=== PATIENT | female | born 1995 | race Caucasian/White ===

== ENCOUNTER 2017-11-09 10:29 | Emergency (ER) | payer MEDICAID ==
[2017-11-09] MEDS ORDERED: TYLENOL 325 MG PO ONE (10:48)
[2017-11-09] MEDS ORDERED: Sodium Chloride 0.9% 1000 ML 1,000 ML IV STA ×2 (10:48→13:13)
[2017-11-09 11:09] LABS: Appearance CLOUDY (CLEAR); Bilirubin NEGATIVE (NEGATIVE); Blood 50 Ery/ul (0-5); Glucose NEGATIVE (NEGATIVE); Ketones NEGATIVE (NEGATIVE); Leukocyte Esterase 1+ (NEGATIVE); Nitrite NEGATIVE (NEGATIVE); Protein,Urine Dip TRACE (Negative); Urobilinogen NORMAL mg/dL (0-1)
[2017-11-09 11:10] LABS: Amourphous Crystal FEW /HPF (NEGATIVE); Bacteria FEW /HPF (NEGATIVE); Epithelial Cells MODERATE /HPF (FEW); Mucus SLIGHT /HPF (NEGATIVE)
[2017-11-09] MEDS ORDERED: TYLENOL 325 MG ONE (11:18)
[2017-11-09] MEDS ORDERED: Sodium Chloride 0.9% 1000 ML 1,000 ML ONE ×2 (11:18→13:22)
[2017-11-09 11:19] LABS: Granulocyte Absolute (ANC) 5.31 (1.4-6.9); Hemoglobin 14.5 gm/dl (12.0-16.0); Mean Platelet Volume 10.3 fl (6-9.5); Platelet Count 216 K/mm3 (150-450); Red Cell Distribution Width 14.6 % (11.5-14.0); White Blood Count 6.4 K/mm3 (4.0-10.5)
--- NOTE | 2017-11-09 11:19 | ERPHSYRPT ---
- History of Present Illness Time Seen by Provider: 11/09/17 10:41 Source: patient Patient Subjective Stated Complaint: FEVER AND LOWER BACK PAIN FOR TWO DAYS. Triage Nursing Assessment: AMBULATED TO ROOM PER SELF. SKIN COOL TO TOUCH/ MOIST. LOWER BACK PAIN SINCE YESTERDAY. INSTRUCTED ON CLEAN CATCH URINE. Physician History: CC: fever Hx: 22 y/o patient with fever 102 since yesterday as well as low back pain. No N /T/W. She has slight cough. Not much sore throat. No rhinorrhea. Normal urination. She takes depo provera. She has insulin resistance but misses her metformin usually. No abd pain. No V/D. She has chronic psoriasis. Took motrin for the fever at home. Timing/Duration: yesterday Fever Severity: moderate Allergies/Adverse Reactions: No Known Drug Allergies Allergy (Verified 11/09/17 10:39) Hx Tetanus, Diphtheria Vaccination/Date Given: No Hx Influenza Vaccination/Date Given: No Hx Pneumococcal Vaccination/Date Given: No - Review of Systems Constitutional: Fever, Chills, Fatigue, Malaise Eyes: No Symptoms Ears, Nose, & Throat: Throat Pain, No Nose Congestion Respiratory: Cough Cardiac: No Chest Pain Abdominal/Gastrointestinal: No Abdominal Pain, No Nausea, No Vomiting, No Diarrhea Genitourinary Symptoms: No Dysuria, No Musculoskeletal: Back Pain Skin: No Rash Neurological: No Headache All Other Systems: Reviewed and Negative - Past Medical History Pertinent Past Medical History: Yes Neurological History: No Pertinent History ENT History: No Pertinent History Cardiac History: No Pertinent History Respiratory History: No Pertinent History Endocrine Medical History: No Pertinent History Musculoskeletal History: No Pertinent History GI Medical History: No Pertinent History History: No Pertinent History Psycho-Social History: No Pertinent History Female Reproductive Disorders: No Pertinent History Other Medical History: INSULIN RESISTANCE - Past Surgical History Past Surgical History: No Other Surgical History: TONSILS - Social History Smoking Status: Never smoker Exposure to second hand smoke: Yes Drug Use: none Patient Lives Alone: No - Female History Hx Now: (HCG pending, on depo provera) - Nursing Vital Signs Nursing Vital Signs: Initial Vital Signs Temperature 100.9 F 11/09/17 10:32 Pulse Rate 150 H 11/09/17 10:32 Respiratory Rate 20 11/09/17 10:32 Blood Pressure 140/90 11/09/17 10:32 O2 Sat by Pulse Oximetry 97 11/09/17 10:32 Pain Scale Pain Intensity 5 - Physical Exam General Appearance: alert, other (smiling, nontoxic, clammy skin) Eye Exam: PERRL/EOMI ENT Exam: normal ENT inspection, pharynx normal Neck Exam: normal inspection, non-tender, supple, No meningismus Respiratory Exam: normal breath sounds, lungs clear Cardiovascular/Chest Exam: normal heart sounds, regular rate/rhythm Gastrointestinal/Abdominal Exam: soft, no distention Extremity Exam: non-tender Neurologic Exam: alert, oriented x 3, cooperative, sensation nml, No motor deficits Skin Exam: normal color, warm, dry, No rash SpO2 Interpretation: normal SpO2: 97 Oxygen Delivery: Room Air - Course Nursing assessment & vital signs reviewed: Yes Ordered Tests: Active Orders 24 hr Category Date Time Status Clean Catch Urine Specimen STAT Care 11/09/17 10:41 Active IV Insertion STAT Care 11/09/17 10:48 Active CHEST 2 VIEWS (PA AND LAT) Stat Exams 11/09/17 11:58 Completed BLOOD CULTURE Stat Lab 11/09/17 11:02 Received CBC W DIFF Stat Lab 11/09/17 10:55 Completed CMP Stat Lab 11/09/17 10:55 Completed CULTURE, THROAT Stat Lab 11/09/17 11:14 Received CULTURE,URINE Stat Lab 11/09/17 10:41 Received HCG,QUALITATIVE URINE Stat Lab 11/09/17 10:50 Completed Lactic Acid Stat Lab 11/09/17 10:48 Completed Manual Differential NC Stat Lab 11/09/17 10:55 Completed STREP SCREEN-BETA A Stat Lab 11/09/17 11:14 Completed UA W/ MICROSCOPIC Stat Lab 11/09/17 10:41 Completed Medication Summary Generic Name Dose Route Start Last Admin Trade Name Freq PRN Reason Stop Dose Admin Ceftriaxone Sodium/Dextrose 1 g in 50 mls @ 100 mls/hr 11/09/17 13:13 Rocephin 1 Gm-D5w 50 Ml Bag IV 11/09/17 13:42 STAT STA Sodium Chloride 1,000 mls @ 999 mls/hr 11/09/17 13:13 Sodium Chloride 0.9% 1000 Ml IV 11/09/17 14:13 .Q1H1M STA Discontinued Medications Generic Name Dose Route Start Last Admin Trade Name Freq PRN Reason Stop Dose Admin Acetaminophen 975 mg 11/09/17 10:48 11/09/17 11:20 Tylenol 325 Mg PO 11/09/17 10:49 975 mg STAT ONE Administration Acetaminophen Confirm 11/09/17 11:18 Tylenol 325 Mg Administered 11/09/17 11:19 Dose 975 mg .ROUTE .STK-MED ONE Sodium Chloride 1,000 mls @ 999 mls/hr 11/09/17 10:48 11/09/17 11:19 Sodium Chloride 0.9% 1000 Ml IV 11/09/17 11:48 999 mls/hr .Q1H1M STA Administration Sodium Chloride Confirm 11/09/17 11:18 Sodium Chloride 0.9% 1000 Ml Administered 11/09/17 11:19 Dose 1,000 mls @ ud .ROUTE .STK-MED ONE Lab/Rad Data: Laboratory Result Diagrams 11/09/17 10:55 11/09/17 10:55 Laboratory Results 11/09/17 11/09/17 11/09/17 Range/Units 11:14 11:14 10:55 WBC (4.0-10.5) K/mm3 RBC (4.1-5.4) M/mm3 Hgb (12.0-16.0) gm/dl Hct (35-47) % MCV (78-100) fl MCH (26-32) pg MCHC (32-36) g/dl RDW (11.5-14.0) % Plt Count (150-450) K/mm3 MPV (6-9.5) fl Segmented Neutrophils (36.0-66.0) % Band Neutrophils (0.0-2.0) % Lymphocytes (Manual) (24-44) % Monocytes (Manual) (0.0-12.0) % Differential Comment Platelet Estimate (NORMAL) Sodium 136 (136-145) mEq/L Potassium 3.5 (3.5-5.1) mEq/L Chloride 102 (98-107) mEq/L Carbon Dioxide 20.9 L (21-32) mEq/L Anion Gap 16.9 H (5-15) MEQ/L BUN 5 L (9-20) mg/dL Creatinine 0.84 (0.55-1.30) mg/dl Estimated GFR > 60 ML/MIN Glucose 106 (70-110) MG/DL Lactic Acid (0.4-2.0) Calcium 9.0 (8.5-10.1) mg/dL Total Bilirubin 0.60 (0.2-1.0) mg/dL AST 78 H (15-37) U/L ALT 82 H (12-78) U/L Alkaline Phosphatase 128 H (46-116) U/L Serum Total Protein 8.7 H (6.4-8.2) gm/dL Albumin 3.7 (3.4-5.0) g/dL Ur Collection Type Urine Color (YELLOW) Urine Appearance (CLEAR) Urine pH (5-6) Ur Specific Garwood (1.005-1.025) Urine Protein (Negative) Urine Ketones (NEGATIVE) Urine Blood (0-5) Franky/ul Urine Nitrite (NEGATIVE) Urine Bilirubin (NEGATIVE) Urine Urobilinogen (0-1) mg/dL Ur Leukocyte Esterase (NEGATIVE) Urine Microscopic RBC (0-2) /HPF Urine Microscopic WBC (0-5) /HPF Ur Epithelial Cells (FEW) /HPF Amorphous Crystals (NEGATIVE) /HPF Urine Bacteria (NEGATIVE) /HPF Urine Mucus (NEGATIVE) /HPF Urine Culture Reflexed (NO) Urine Glucose (NEGATIVE) mg/dL Urine HCG, Qual (Negative) Influenza Type A Ag NEGATIVE (NEGATIVE) Influenza Type B Ag NEGATIVE (NEGATIVE) RSV (PCR) NEGATIVE (Negative) Streptococcus Screen NEGATIVE (Negative) Specimen Received 11/09/17 11/09/17 11/09/17 Range/Units 10:55 10:50 10:48 WBC 6.4 (4.0-10.5) K/mm3 RBC 5.50 H (4.1-5.4) M/mm3 Hgb 14.5 (12.0-16.0) gm/dl Hct 44.0 (35-47) % MCV 80.0 (78-100) fl MCH 26.3 (26-32) pg MCHC 33.0 (32-36) g/dl RDW 14.6 H (11.5-14.0) % Plt Count 216 (150-450) K/mm3 MPV 10.3 H (6-9.5) fl Segmented Neutrophils 82 H (36.0-66.0) % Band Neutrophils 5 H (0.0-2.0) % Lymphocytes (Manual) 12 L (24-44) % Monocytes (Manual) 1 (0.0-12.0) % Differential Comment NORMAL Platelet Estimate NORMAL (NORMAL) Sodium (136-145) mEq/L Potassium (3.5-5.1) mEq/L Chloride (98-107) mEq/L Carbon Dioxide (21-32) mEq/L Anion Gap (5-15) MEQ/L BUN (9-20) mg/dL Creatinine (0.55-1.30) mg/dl Estimated GFR ML/MIN Glucose (70-110) MG/DL Lactic Acid 1.3 (0.4-2.0) Calcium (8.5-10.1) mg/dL Total Bilirubin (0.2-1.0) mg/dL AST (15-37) U/L ALT (12-78) U/L Alkaline Phosphatase (46-116) U/L Serum Total Protein (6.4-8.2) gm/dL Albumin (3.4-5.0) g/dL Ur Collection Type Urine Color (YELLOW) Urine Appearance (CLEAR) Urine pH (5-6) Ur Specific Garwood (1.005-1.025) Urine Protein (Negative) Urine Ketones (NEGATIVE) Urine Blood (0-5) Franky/ul Urine Nitrite (NEGATIVE) Urine Bilirubin (NEGATIVE) Urine Urobilinogen (0-1) mg/dL Ur Leukocyte Esterase (NEGATIVE) Urine Microscopic RBC (0-2) /HPF Urine Microscopic WBC (0-5) /HPF Ur Epithelial Cells (FEW) /HPF Amorphous Crystals (NEGATIVE) /HPF Urine Bacteria (NEGATIVE) /HPF Urine Mucus (NEGATIVE) /HPF Urine Culture Reflexed (NO) Urine Glucose (NEGATIVE) mg/dL Urine HCG, Qual NEGATIVE (Negative) Influenza Type A Ag (NEGATIVE) Influenza Type B Ag (NEGATIVE) RSV (PCR) (Negative) Streptococcus Screen (Negative) Specimen Received 11/09/17 Range/Units 10:41 WBC (4.0-10.5) K/mm3 RBC (4.1-5.4) M/mm3 Hgb (12.0-16.0) gm/dl Hct (35-47) % MCV (78-100) fl MCH (26-32) pg MCHC (32-36) g/dl RDW (11.5-14.0) % Plt Count (150-450) K/mm3 MPV (6-9.5) fl Segmented Neutrophils (36.0-66.0) % Band Neutrophils (0.0-2.0) % Lymphocytes (Manual) (24-44) % Monocytes (Manual) (0.0-12.0) % Differential Comment Platelet Estimate (NORMAL) Sodium (136-145) mEq/L Potassium (3.5-5.1) mEq/L Chloride (98-107) mEq/L Carbon Dioxide (21-32) mEq/L Anion Gap (5-15) MEQ/L BUN (9-20) mg/dL Creatinine (0.55-1.30) mg/dl Estimated GFR ML/MIN Glucose (70-110) MG/DL Lactic Acid (0.4-2.0) Calcium (8.5-10.1) mg/dL Total Bilirubin (0.2-1.0) mg/dL AST (15-37) U/L ALT (12-78) U/L Alkaline Phosphatase (46-116) U/L Serum Total Protein (6.4-8.2) gm/dL Albumin (3.4-5.0) g/dL Ur Collection Type CLEAN CATCH Urine Color YELLOW (YELLOW) Urine Appearance CLOUDY (CLEAR) Urine pH 5.0 (5-6) Ur Specific Garwood 1.020 (1.005-1.025) Urine Protein TRACE (Negative) Urine Ketones NEGATIVE (NEGATIVE) Urine Blood 50 (0-5) Franky/ul Urine Nitrite NEGATIVE (NEGATIVE) Urine Bilirubin NEGATIVE (NEGATIVE) Urine Urobilinogen NORMAL (0-1) mg/dL Ur Leukocyte Esterase 1+ (NEGATIVE) Urine Microscopic RBC 2-5 (0-2) /HPF Urine Microscopic WBC 2-5 (0-5) /HPF Ur Epithelial Cells MODERATE (FEW) /HPF Amorphous Crystals FEW (NEGATIVE) /HPF Urine Bacteria FEW (NEGATIVE) /HPF Urine Mucus SLIGHT (NEGATIVE) /HPF Urine Culture Reflexed YES (NO) Urine Glucose NEGATIVE (NEGATIVE) mg/dL Urine HCG, Qual (Negative) Influenza Type A Ag (NEGATIVE) Influenza Type B Ag (NEGATIVE) RSV (PCR) (Negative) Streptococcus Screen (Negative) Specimen Received 11/09/17 1030 - Progress Progress Note: 11/09/17 13:16 HR much improved after APAP and IVF bolus. She has nonfocal symptoms. Flu like syndrome. She states chronic back pain without new or changed symptoms. LAbs reassuring. She does have a few bands and possible UTI. No abdominal tenderness on recheck examination. Normal spine examination. Will give IVF bolus, Rocephin , cultures sent, and will follow up with SAMAN Sims tomorrow. She is now eating a popscicle. Counseled pt/family regarding: lab results, diagnosis, need for follow-up, rad results - Departure Time of Disposition: 13:18 Departure Disposition: Home Clinical Impression: Fever, UTI (urinary tract infection) Condition: Fair Critical Care Time: No Referrals: REJI SIMS NP [Primary Care Provider] - Instructions: Fever (Symptom) -- Adult Additional Instructions: See SAMAN Sims tomorrow at 1:45PM. Rx omnicef- sent to [facility]. Push oral fluids. Return for rash, confusion, recurrent vomiting, or concerns. Tylenol every 4-6 hours for fever/discomfort. Prescriptions: Cefdinir [Omnicef 300 mg] 300 mg PO BID #20 capsule
[2017-11-09 11:22] LABS: Mean Corpuscular Hemoglobin 26.3 pg (26-32)
[2017-11-09 11:29] LABS: ALBUMIN 3.7 g/dL (3.4-5.0); ALKALINE PHOSPHATASE 128 U/L (46-116); ANION GAP 16.9 MEQ/L (5-15); CHLORIDE 102 mEq/L (98-107); Carbon Dioxide 20.9 mEq/L (21-32); Creatinine 1 0.84 mg/dl (0.55-1.30); EST GLOMERULAR FILTRATION RATE > 60 ML/MIN; Glucose 106 MG/DL (70-110); Potassium 3.5 mEq/L (3.5-5.1); SGOT/AST 78 U/L (15-37); SGPT/ALT 82 U/L (12-78); SODIUM 136 mEq/L (136-145); Total Protein 8.7 gm/dL (6.4-8.2)
[2017-11-09 11:35] LABS: BLOOD UREA NITROGEN 5 mg/dL (9-20)
[2017-11-09 11:41] LABS: BAND 5 % (0.0-2.0); Lymphocytes 12 % (24-44); Monocyte 1 % (0.0-12.0); Neutrophils 82 % (36.0-66.0); Total Cells Counted 100
[2017-11-09 11:42] LABS: Platelet Estimate NORMAL (NORMAL)
[2017-11-09 12:24] LABS: INFLUENZA A NEGATIVE (NEGATIVE); INFLUENZA B NEGATIVE (NEGATIVE); RESPIRATORY SYNCTIAL VIRUS NEGATIVE (Negative)
--- NOTE | 2017-11-09 12:29 | XRAY ---
Indication: Fever and cough. Comparison: None PA/lateral chest demonstrates normal heart, lungs, and bony thorax.
[2017-11-09] MEDS ORDERED: ROCEPHIN 1 Gm-D5w 50 ml Bag** 1 G/50 ML IVPB IV STA (13:13)
[2017-11-09] MEDS ORDERED: ROCEPHIN 1 Gm-D5w 50 ml Bag** 1 G/50 ML IVPB IV ONE (13:22)
[2017-11-09 13:37] VITALS: O2SAT 98
[2017-11-09 14:13] VITALS: BP 127/67; PULSE 90
== END 2017-11-09 14:22 | disposition home or self-care (01) ==
LOC: ED 10:29
DX: N39.0 Urinary tract infection, site not specified (principal); R50.9 Fever, unspecified; J11.1 Influenza due to unidentified influenza virus with other respiratory manifestations
CPT/HCPCS: 36000; 36415; 71046; 80053; 81000; 83605; 84703; 85025; 87040; 87070; 87086; 87430; 87631; 96360; 96361; 96365; 99284; J0696; A9270-GY

== ENCOUNTER 2018-08-01 10:16 | Emergency (ER) | payer OTHER ==
[2018-08-01 10:26] VITALS: BP 168/108; PULSE 116
--- NOTE | 2018-08-01 10:29 | ERPHSYRPT ---
- History of Present Illness Time Seen by Provider: 08/01/18 10:25 Source: patient Exam Limitations: no limitations Patient Subjective Stated Complaint: co something in left ear, she woke up states she feels something is crawling in ear Triage Nursing Assessment: pt alert, resp easy, skin w/d/p Physician History: 23-year-old white female arrives with complaint of foreign body sensation ( insect) in her left ear canal symptoms since just prior to arrival. Patient states she was sleeping when she felt something Proventil into her ear. Patient denies other complaints. Past medical history patient denies pastsurgicalhistory tonsils Social history alcohol use Timing/Duration: today Severity: moderate Modifying Factors: Improves With: nothing Associated Symptoms: No nausea, No vomiting, No abdominal pain, No shortness of breath, No heartburn, No diaphoresis, No cough, No chills, No chest pain, No fever, No headaches, No loss of appetite, No malaise, No rash, No syncope, No seizure, No weakness Allergies/Adverse Reactions: No Known Drug Allergies Allergy (Verified 08/01/18 10:25) Hx Tetanus, Diphtheria Vaccination/Date Given: Yes Hx Influenza Vaccination/Date Given: No Hx Pneumococcal Vaccination/Date Given: No Immunizations Up to Date: Yes - Review of Systems Constitutional: No Fever, No Chills Eyes: No Symptoms Ears, Nose, & Throat: Other (foreign body sensation (insect) left ear), No Ear Discharge, No Hearing Changes, No Tinnitus, No Nose Pain, No Nose Congestion, No Nose Discharge, No Sinus Drainage, No Epistaxis, No Mouth Pain, No Mouth Swelling, No Loose Teeth, No Throat Pain, No Throat Swelling, No Hoarse, No Painful Swallowing, No Snoring, No Stridor Respiratory: No Cough, No Dyspnea Cardiac: No Chest Pain, No Edema, No Syncope Abdominal/Gastrointestinal: No Abdominal Pain, No Nausea, No Vomiting, No Diarrhea Genitourinary Symptoms: No Dysuria Musculoskeletal: No Back Pain, No Neck Pain Skin: No Rash Neurological: No Dizziness, No Focal Weakness, No Sensory Changes Psychological: No Symptoms Endocrine: No Symptoms All Other Systems: Reviewed and Negative - Past Medical History Pertinent Past Medical History: No Neurological History: No Pertinent History ENT History: No Pertinent History Cardiac History: No Pertinent History Respiratory History: No Pertinent History Endocrine Medical History: No Pertinent History Musculoskeletal History: No Pertinent History GI Medical History: No Pertinent History History: No Pertinent History Psycho-Social History: No Pertinent History Female Reproductive Disorders: No Pertinent History Other Medical History: INSULIN RESISTANCE - Past Surgical History Past Surgical History: No Other Surgical History: TONSILS - Social History Smoking Status: Never smoker Exposure to second hand smoke: No Drug Use: none Patient Lives Alone: No - Female History Hx Last Menstrual Period: unsre Hx Now: No - Nursing Vital Signs Nursing Vital Signs: Initial Vital Signs Temperature 98.6 F 08/01/18 10:22 Pulse Rate 116 H 08/01/18 10:22 Respiratory Rate 16 08/01/18 10:22 Blood Pressure 168/108 08/01/18 10:22 O2 Sat by Pulse Oximetry 100 08/01/18 10:22 Pain Scale Pain Intensity 0 - Physical Exam General Appearance: no apparent distress, alert Eye Exam: PERRL/EOMI, eyes nml inspection Ears, Nose, Throat Exam: TMs normal, pharynx normal, moist mucous membranes, other (insect in left ear canal) Neck Exam: normal inspection, non-tender, supple, full range of motion Respiratory Exam: normal breath sounds, lungs clear, No respiratory distress Cardiovascular Exam: regular rate/rhythm, normal heart sounds, normal peripheral pulses Gastrointestinal/Abdomen Exam: soft, normal bowel sounds, No tenderness, No mass Back Exam: normal inspection, normal range of motion, No CVA tenderness, No vertebral tenderness Extremity Exam: normal inspection, normal range of motion, pelvis stable Neurologic Exam: alert, oriented x 3, cooperative, converter operator II-XII nml as tested, normal mood/affect, nml cerebellar function, nml station & gait, sensation nml, No motor deficits Skin Exam: normal color, warm, dry, No rash SpO2 Interpretation: normal (100%) SpO2: 100 Oxygen Delivery: Room Air - Course Nursing assessment & vital signs reviewed: Yes Ordered Tests: Medication Summary Discontinued Medications Generic Name Dose Route Start Last Admin Trade Name Delisa PRN Reason Stop Dose Admin Lidocaine HCl 20 ml 08/01/18 10:40 08/01/18 10:46 Xylocaine Viscous 2% 20 Ml Cup PO 08/01/18 10:41 20 ml STAT ONE Administration Lidocaine HCl Confirm 08/01/18 10:43 Xylocaine Hcl Viscous * Administered 08/01/18 10:44 Dose 15 ml .ROUTE .STK-MED ONE - Progress Progress: improved Progress Note: 08/01/18 11:33 23-year-old white female with complaint of an insect in her left ear canal since just prior to arrival. Patient with a visible insect in her left ear canal. Left ear canal is infused with 2% viscous lidocaine. After approximately 10-15 minutes patient's nurse irrigated the left ear. And a winged insect came out of the patient's left ear. Patient's left ear is reexamined tympanic membrane is intact, no further foreign bodies no erythema. Will release patient. - Departure Time of Disposition: 11:35 Departure Disposition: Home Clinical Impression: insect left ear canal Acute foreign body of left ear canal Qualifiers: Encounter type: initial encounter Qualified Code(s): T16.2XXA - Foreign body in left ear, initial encounter Condition: Fair Critical Care Time: No Referrals: ARABELLA MAYER [Primary Care Provider] - Additional Instructions: Return home. Follow-up with your family doctor or return if problems. Return for acute distress or for severe symptoms.
[2018-08-01] MEDS ORDERED: XYLOCAINE HCl Viscous ONE (10:43)
[2018-08-01] MEDS: XYLOCAINE VISCOUS 2% 20 ML CUP PO ONE (10:46)
[2018-08-01 11:46] VITALS: O2SAT 98
== END 2018-08-01 11:45 | disposition home or self-care (01) ==
LOC: ED 10:16
DX: T16.2XXA Foreign body in left ear, initial encounter (principal)
CPT/HCPCS: 69200; 69210; 99283; A9270-GY

== ENCOUNTER 2023-04-13 15:09 | Emergency (ER) | payer MEDICAID ==
[2023-04-13 16:32] VITALS: BP 130/87; PULSE 109; O2SAT 97
--- NOTE | 2023-04-13 16:39 | ERPHSYRPT ---
- History of Present Illness Source: patient Exam Limitations: no limitations Patient Subjective Stated Complaint: C/O pain and swelling to RLE Triage Nursing Assessment: Patient ambulated back to ER without difficulties. She is alert and oriented. No SOB. BLE are red and swollen with scaly shins. Patient reports sunburns to area from trip to [place] a few weeks ago. Bilateral, weak, pedal pulses are present. Physician History: 27 yo WF 23 wks ([id number]) w B lower extremity edema x 2 wks and mild R calf pain x 1 day. Pt has B pre-tibial sunburn which is resolving. She denies chest pain/dyspnea/fever/vag bleeding/dysuria/hematuria. Pt sent to the ER by her Ob to r/o DVT. Method of Injury: unknown Occurred: other (2 wks) Modifying Factors: Improves With: nothing Allergies/Adverse Reactions: metoprolol Allergy (Verified 04/13/23 15:47) Difficulty Breathing Home Medications: Metformin HCl Xr 500 mg [Glucophage XR 500 MG] 2 tab PO DAILY 02/14/19 [History] Aspirin EC 81 mg [Ecotrin 81 mg] 1 tab PO DAILY 04/13/23 [History] Pnv No.95/Ferrous Fum/Folic AC [ Caplet] 1 cap PO DAILY 04/13/23 [History] Hx Tetanus, Diphtheria Vaccination/Date Given: Yes Hx Influenza Vaccination/Date Given: No Hx Pneumococcal Vaccination/Date Given: No Immunizations Up to Date: Yes Travel Risk - International Travel Have you traveled outside of the country in past 3 weeks: No - Coronavirus Screening Are you exhibiting any of the following symptoms?: No Close contact with a COVID-19 positive Pt in past 14-21 Days: No - Vaccine Status Have you recieved a Covid-19 vaccination: No - Review of Systems Constitutional: No Symptoms Eyes: No Symptoms Ears, Nose, & Throat: No Symptoms Respiratory: No Symptoms Cardiac: No Symptoms Abdominal/Gastrointestinal: No Symptoms Genitourinary Symptoms: No Symptoms Neurological: No Symptoms Psychological: No Symptoms Endocrine: No Symptoms Hematologic/Lymphatic: No Symptoms Immunological/Allergic: No Symptoms - Past Medical History Pertinent Past Medical History: Yes Neurological History: No Pertinent History ENT History: No Pertinent History Cardiac History: No Pertinent History Respiratory History: No Pertinent History Endocrine Medical History: No Pertinent History Musculoskeletal History: No Pertinent History GI Medical History: No Pertinent History History: No Pertinent History Psycho-Social History: No Pertinent History Female Reproductive Disorders: No Pertinent History Other Medical History: PSORIASIS, PCOS. insulin resistance - Past Surgical History Past Surgical History: Yes Other Surgical History: TONSILS - Social History Smoking Status: Never smoker Exposure to second hand smoke: Yes Drug Use: none Patient Lives Alone: No - Female History Hx Last Menstrual Period: Nov 03, 2022 Hx Now: Yes Gestational Age: 23 weeks - Nursing Vital Signs Nursing Vital Signs: Initial Vital Signs Blood Pressure 176/107 04/13/23 15:46 O2 Sat by Pulse Oximetry 98 04/13/23 15:46 Pain Scale Pain Intensity 2 Hypertensive - Physical Exam General Appearance: no apparent distress Eyes, Ears, Nose, Throat Exam: normal ENT inspection, TMs normal, pharynx normal, moist mucous membranes Neck Exam: normal inspection, non-tender, supple, full range of motion, No Brudzinski, No Kernig's, No meningismus Cardiovascular/Respiratory Exam: normal breath sounds, regular rate/rhythm, heart sounds normal Gastrointestinal/Abdominal Exam: non-tender, soft Back Exam: normal inspection, normal range of motion, No CVA tenderness, No vertebral tenderness Hips Exam: bilateral: non-tender, normal inspection, normal range of motion, no evidence of injury Legs Exam: bilateral leg: swelling (Mild B pre-tibial edema/B calves NTTP/Resolving pre-tibial solar rich w mild erythema and encrusting/Good pedal pulses B/Good distal capillary return and sensation B) Knees Exam: bilateral knee: non-tender, normal inspection, normal range of motion, no evidence of injury Ankle Exam: bilateral ankle: swelling (Mild) Foot Exam: bilateral foot: non-tender, normal inspection, normal range of motion, no evidence of injury Neuro/Tendon Exam: normal sensation, normal motor functions, responds to pain, no evidence tendon injury, No motor deficit, No sensory deficit Mental Status Exam: alert, oriented x 3, cooperative Skin Exam: normal color, warm, dry SpO2 Interpretation: normal SpO2: 97 O2 Delivery: Room Air - Course Nursing assessment & vital signs reviewed: Yes - Radiology Ultrasound Exam Venous Lower Extremity Ultrasound: discussed w/radiologist (Neg for DVT) Ordered Tests: Active Orders 24 hr Category Date Time Status VENOUS BILATERAL EXTREMITY [US] Stat Exams 04/13/23 15:55 Completed - Progress Progress Note: 04/13/23 20:27 Nursing note and vital signs reviewed No food or housing insecurities noted US result reviewed and shared w pt Lower extremity edema most likely due to and resolving solar rich BP decreasing upon discharge 04/13/23 20:28 Counseled pt/family regarding: diagnosis, need for follow-up, rad results Medical Desision Making - Diagnostic Testing Radiological Interpretation: Reviewed by me - Risk of complications Low Risk: Low risk of morbidity from additional dx testing or treatment - Departure Departure Disposition: Home Clinical Impression: Lower extremity edema, Sunburn Condition: Stable Critical Care Time: No Referrals: ARABELLA SANDHU [Primary Care Provider] - Follow up/PCP as directed Instructions: Dependent Edema (DC) Additional Instructions: Follow up with your family MD or Ob Elevate legs Return to ER as needed
--- NOTE | 2023-04-13 16:41 | XRAY ---
Indication: Edema. Two-dimensional sonogram and color Doppler imaging of the major venous vessels of the left and right leg performed. Comparison: None No thrombus seen in the examined deep venous vessels of the left and right leg including greater saphenous vein. Veins demonstrate normal compressibility. Venous waveforms are normal with and without augmentation. Impression: Left and right legs negative for DVT.
== END 2023-04-13 16:45 | disposition home or self-care (01) ==
LOC: ED 15:09
DX: R60.0 Localized edema (principal); L55.0 Sunburn of first degree; M79.661 Pain in right lower leg; Z33.1 Pregnant state, incidental; Z79.84 Long term (current) use of oral hypoglycemic drugs; Z79.899 Other long term (current) drug therapy; Z28.310 Unvaccinated for COVID-19
CPT/HCPCS: 93970; 99283

== ENCOUNTER 2023-08-02 08:00 | Inpatient (IN) | payer MEDICAID ==
[2023-08-02] MEDS ORDERED: TYLENOL EXTRA STRENGTH 500 MG PO PRN (16:00)
[2023-08-02] MEDS ORDERED: Zofran 4 MG/2 ML VIAL IV PRN (16:00)
[2023-08-02] MEDS: CYTOTEC PO SCH ×4 (16:49→23:30)
[2023-08-02 16:57] LABS: Absolute Neutrophil Ct (ANC) 8.74 x10^3/uL (1.4-6.9); BASOPHIL % 0.3 % (0.0-0.4); Basophil (Absolute #) 0.04 x10^3/uL (0-0.4); Eosinophil % 0.4 % (0.00-5.0); Eosinophil (Absolute #) 0.05 x10^3/uL (0-0.5); Hematocrit 39.2 % (35-47); Hemoglobin 12.2 g/dL (12.0-16.0); IMMATURE GRAN % 0.8 % (0.00-0.4); Lymphocyte (Absolute #) 2.12 x10^3/uL (1.0-4.6); Lymphocytes % 17.9 % (24.0-44.0); Mean Cell Volume 80.3 fL (78-100); Mean Corpuscular Hgb Concent. 31.1 g/dL (32-36); Mean Platelet Volume 11.2 fL (7.5-11.0); Monocyte (Absolute #) 0.81 x10^3/uL (0.0-1.3); Monocytes % 6.8 % (0.0-12.0); Neutrophil % 73.8 % (36.0-66.0); Platelet Count 273 x10^3/uL (150-450); Red Blood Count 4.88 x10^6/uL (4.1-5.4); Red Cell Distribution Width 14.2 % (11.5-14.0); White Blood Count 11.9 x10^3/uL (4.0-10.5)
[2023-08-02 17:18] LABS: Amphetamine,Urine NEGATIVE (NEGATIVE); Barbiturate,Urine NEGATIVE (NEGATIVE); Benzodiazepine,Urine NEGATIVE (NEGATIVE); Cocaine,Urine NEGATIVE (NEGATIVE); Methadone,Urine NEGATIVE (NEGATIVE); Opiate,Urine NEGATIVE (NEGATIVE); PCP,Urine NEGATIVE (NEGATIVE); THC,Urine NEGATIVE (NEGATIVE)
[2023-08-02 17:38] LABS: ADD URINE CULTURE? YES (NO); Appearance Turbid (Clear); Bacteria Many /HPF (None Seen); Bilirubin Negative (Negative); Blood Negative (Negative); Epithelial Cells Many /HPF (None Seen); Glucose, Urine Negative (Negative); Ketones Negative (Negative); Leukocyte Esterase Large (Negative); Nitrite Negative (Negative); Protein,Urine Dip Trace (Negative); RBC 0-2 /HPF (0-5); WBC 51-100 /HPF (0-5)
[2023-08-02 17:50] LABS: ABO TYPING B; Antibody Screen NEGATIVE (NEGATIVE); RH TYPING NEGATIVE
[2023-08-02] MEDS ORDERED: Nubain 10 MG/ML IV PRN (22:32)
[2023-08-03] MEDS: CYTOTEC PO SCH ×3 (01:31→05:55)
[2023-08-03] MEDS ORDERED: FENTANYL 2 MCG-BUPIV 0.125%-NS 250 ML Epidur 250 ML EPIDURAL ONE (03:55)
[2023-08-03] MEDS ORDERED: Lactated Ringers 2,000 ML IV ONE (03:56)
[2023-08-03] MEDS: Lactated Ringers 1,000 ML IV SCH ×3 (05:57→17:37)
[2023-08-03] MEDS ORDERED: FENTANYL 2 MCG-BUPIV 0.125%-NS 250 ML Epidur 250 ML EPIDURAL SCH (06:00)
[2023-08-03] MEDS ORDERED: Lactated Ringers 1,000 ML IV ONE ×2 (06:00→14:33)
[2023-08-03] MEDS ORDERED: Ephedrine Sulfate 50 MG/ML IV PRN (06:00)
[2023-08-03] MEDS ORDERED: PITOCIN 30 UNITS/ LR 500 ML 30 UNITS/500 ML PLAST..BAG IV SCH (07:00)
[2023-08-03] MEDS ORDERED: XYLOCAINE 1% HCL 20 ML MDV IJ PRN (07:00)
[2023-08-03] MEDS ORDERED: Pepcid 20 MG VIAL IV STA (14:33)
[2023-08-03] MEDS ORDERED: Reglan 10 MG/2 ML IV STA (14:33)
[2023-08-03] MEDS ORDERED: SOD CITRATE-CITRIC ACID SOLN PO STA (14:33)
[2023-08-03] MEDS ORDERED: CEFAZOLIN 2 GM-D5W BAG** 2 GM/50 ML ML IV ONE (14:35)
[2023-08-03] MEDS ORDERED: XYLOCAINE 2%/Epi 1:200000 20ML VIAL MPF ONE (15:35)
[2023-08-03] MEDS ORDERED: SUBLIMAZE 100 MCG/2 ML ONE (15:35)
[2023-08-03] MEDS ORDERED: DEXMEDETOMIDINE 80 MCG/20ML-NS IV ONE (15:50)
[2023-08-03] MEDS ORDERED: Pitocin 10 UNITS/ML ONE (16:05)
[2023-08-03] MEDS ORDERED: TORAdol 30 mg Injection ONE (16:07)
[2023-08-03] MEDS ORDERED: Astramorph-Pf 5 MG/10 ML ONE (16:13)
[2023-08-03] MEDS ORDERED: PHENYLEPHRINE HCL ONE (16:21)
[2023-08-03] MEDS ORDERED: PERCOCET TABLET 5/325MG PO PRN (19:24)
[2023-08-03] MEDS ORDERED: Zofran 4 MG/2 ML VIAL IV PRN (19:24)
[2023-08-03] MEDS ORDERED: Dulcolax 10 MG SUPP PR PRN (19:24)
[2023-08-03] MEDS ORDERED: MORPHINE SULFATE 2 MG INJ IV PRN (19:24)
[2023-08-03] MEDS ORDERED: Narcan 0.4 MG/ML IV PRN (19:24)
[2023-08-03] MEDS ORDERED: HOLD NARCOTIC ANALGESICS AND SEDATIVES X24 HR MC PRN (19:24)
[2023-08-03] MEDS ORDERED: TUCKS TP PRN (19:24)
[2023-08-03] MEDS ORDERED: Anucort-HC SUPPOSITORY PR PRN (19:24)
[2023-08-03] MEDS ORDERED: Ambien 10 MG PO PRN (19:24)
[2023-08-03] MEDS ORDERED: CLARITIN 10 MG PO PRN (19:24)
[2023-08-03] MEDS ORDERED: LANSINOH 40 GM TOP PRN (19:24)
[2023-08-03] MEDS ORDERED: BENADRYL 50 MG/ML IV PRN (19:24)
[2023-08-03] MEDS ORDERED: Sodium Chloride 0.9% 10 ML FLUSH Syringe IJ PRN (19:24)
[2023-08-03] MEDS ORDERED: Mylicon 80MG PO PRN (19:24)
[2023-08-03] MEDS ORDERED: CORTISONE 1% CREAM TP PRN (19:24)
[2023-08-03] MEDS ORDERED: Nubain 10 MG/ML IV PRN (19:24)
[2023-08-03] MEDS ORDERED: Dextrose 5%-Lr IV Solution 1000 ML 1,000 ML IV SCH (19:30)
[2023-08-03] MEDS: MOTRIN 400 MG PO PRN (22:58)
[2023-08-03] MEDS: Docusate Sodium 100 MG PO SCH (22:58)
[2023-08-03] MEDS: CEFAZOLIN 2 GM-D5W BAG** 2 GM/50 ML ML IV SCH (22:59)
[2023-08-04] MEDS: Lactated Ringers 1,000 ML IV SCH (02:58)
[2023-08-04 04:16] LABS: Absolute Neutrophil Ct (ANC) 22.07 x10^3/uL (1.4-6.9); BASOPHIL % 0.2 % (0.0-0.4); Basophil (Absolute #) 0.05 x10^3/uL (0-0.4); Eosinophil % 0.1 % (0.00-5.0); Eosinophil (Absolute #) 0.02 x10^3/uL (0-0.5); Hematocrit 31.1 % (35-47); Hemoglobin 9.8 g/dL (12.0-16.0); IMMATURE GRAN # 0.27 x10^3u/L (0.00-0.03); Lymphocyte (Absolute #) 1.61 x10^3/uL (1.0-4.6); Lymphocytes % 6.2 % (24.0-44.0); Mean Cell Volume 81.4 fL (78-100); Mean Corpuscular Hemoglobin 25.7 pg (26-32); Mean Corpuscular Hgb Concent. 31.5 g/dL (32-36); Mean Platelet Volume 11.2 fL (7.5-11.0); Monocyte (Absolute #) 2.03 x10^3/uL (0.0-1.3); Monocytes % 7.8 % (0.0-12.0); Neutrophil % 84.7 % (36.0-66.0); Platelet Count 269 x10^3/uL (150-450); Red Blood Count 3.82 x10^6/uL (4.1-5.4); Red Cell Distribution Width 14.3 % (11.5-14.0)
[2023-08-04 04:20] LABS: White Blood Count 26.1 x10^3/uL (4.0-10.5)
[2023-08-04 05:00] LABS: Lymphocytes 6 % (24-44); Monocyte 6 % (0.0-12.0); Neutrophils 88 % (36.0-66.0); Total Cells Counted 100
[2023-08-04 05:03] LABS: ANISOCYTOSIS 1+; Hypochromia 1+
[2023-08-04 05:04] LABS: Platelet Estimate NORMAL (NORMAL)
[2023-08-04] MEDS: CEFAZOLIN 2 GM-D5W BAG** 2 GM/50 ML ML IV SCH (07:29)
--- NOTE | 2023-08-04 08:44 | PCM.NOTE ---
Date and Time: 08/04/2338 Subjective Assessment: pod 1 sp csection pt resting in bed and doing well ambulating and tolerating diet vss afebrile abd; soft with dressing intact with no soilage uters; firm lochia; mild hgb; 9.2 a/p sp csection pod 1 anticipate discharge tomorrow OBJECTIVE DATA Vital Signs: Vital Signs - 24 hr Temp Pulse Resp BP BP BP Pulse Ox 08/04/23 07:00 99.0 F 94 H 17 119/66 117/68 98 08/04/23 04:00 99.0 F 94 H 17 117/68 98 08/04/23 01:00 75 16 119/66 99 08/04/23 00:00 97.6 F 75 16 119/66 99 08/03/23 20:00 97.6 F 96 H 18 106/64 97 08/03/23 19:00 96 08/03/23 18:30 97.9 F 103 H 18 113/75 96 08/03/23 18:15 97.9 F 88 16 113/75 96 08/03/23 18:00 93 H 18 107/71 94 L 08/03/23 17:45 97.9 F 73 18 94/70 96 08/03/23 17:30 95 H 18 86/54 97 08/03/23 17:15 100 H 22 99/57 94 L 08/03/23 17:10 94 L 08/03/23 13:45 101 H 22 133/82 98 08/03/23 13:30 113 H 22 142/72 98 08/03/23 13:15 113 H 22 133/75 08/03/23 13:00 22 130/76 08/03/23 12:45 134 H 18 126/71 08/03/23 12:30 127 H 18 136/73 08/03/23 12:15 100 H 18 08/03/23 12:00 100 H 18 103/62 08/03/23 11:54 100 H 18 103/62 08/03/23 11:53 100 H 18 103/62 08/03/23 11:30 75 20 112/65 08/03/23 11:15 100 H 18 103/62 08/03/23 11:00 100 H 18 116/66 08/03/23 10:45 97 H 18 114/77 08/03/23 10:30 108 H 16 139/80 08/03/23 10:15 82 20 132/76 08/03/23 10:00 89 18 139/82 08/03/23 09:45 89 20 139/82 08/03/23 09:30 83 20 127/75 96 08/03/23 09:00 92 H 18 133/82 Pain Assessment - Last Documented Pain Intensity [Lower] 0 Pain Intensity 0 Pain Scale Used 0-10 Pain Scale Intake and Output: Intake & Output 08/01/23 08/02/23 08/03/23 08/04/23 11:59 11:59 11:59 11:59 Intake Total 4100 2400 Output Total 900 2400 Balance 3200 0 Weight 111.13 kg 111.13 kg Lab Results: Lab Results-Last 24 Hours 08/03/23 08/04/23 Range/Units 10:47 04:00 WBC 26.1 H* (4.0-10.5) x10^3/uL RBC 3.82 L (4.1-5.4) x10^6/uL Hgb 9.8 L (12.0-16.0) g/dL Hct 31.1 L (35-47) % MCV 81.4 (78-100) fL MCH 25.7 L (26-32) pg MCHC 31.5 L (32-36) g/dL RDW 14.3 H (11.5-14.0) % Plt Count 269 (150-450) x10^3/uL MPV 11.2 H (7.5-11.0) fL Gran % 84.7 H (36.0-66.0) % Immature Gran % (Auto) 1.0 H (0.00-0.4) % Nucleat RBC Rel Count 0.0 (0.00-0.1) % Eos # (Auto) 0.02 (0-0.5) x10^3/uL Immature Gran # (Auto) 0.27 H (0.00-0.03) x10^3u/L Absolute Lymphs (auto) 1.61 (1.0-4.6) x10^3/uL Absolute Monos (auto) 2.03 H (0.0-1.3) x10^3/uL Absolute Nucleated RBC 0.00 (0.00-0.01) x10^3u/L Lymphocytes % 6.2 L (24.0-44.0) % Monocytes % 7.8 (0.0-12.0) % Eosinophils % 0.1 (0.00-5.0) % Basophils % 0.2 (0.0-0.4) % Absolute Granulocytes 22.07 H (1.4-6.9) x10^3/uL Segmented Neutrophils 88 H (36.0-66.0) % Lymphocytes (Manual) 6 L (24-44) % Monocytes (Manual) 6 (0.0-12.0) % Basophils # 0.05 (0-0.4) x10^3/uL Hypochromia 1+ Platelet Estimate NORMAL (NORMAL) RBC Morphology ABNORMAL Anisocytosis 1+ Smear Path Review Pending POC Glucometer 76 (74 to 106) mg/dL Multi-Disciplinary Progress Notes: Multi-Disciplinary Progress Notes 08/03/23 16:25 Physical Therapy Note by Aidee De León per protocol for , no complications Initialized on 08/03/23 16:25 - END OF NOTE Assessment/Plan (1) Status post delivery Current Visit: Yes Status: Acute Code(s): Z98.891 - HISTORY OF UTERINE SCAR FROM PREVIOUS SURGERY
[2023-08-04] MEDS ORDERED: ENOXAPARIN SODIUM SQ ONE (09:00)
[2023-08-04] MEDS ORDERED: Adacel Vial IM ONE (10:00)
[2023-08-04] MEDS ORDERED: GENTAMICIN 80 MG/50 ML PREMIX*** 80 MG/50 ML ML IV ONE (11:00)
[2023-08-04] MEDS: Docusate Sodium 100 MG PO SCH ×2 (11:13→22:47)
[2023-08-04] MEDS: FERREX 150 PO SCH (11:13)
[2023-08-04] MEDS ORDERED: CLINDAMYCIN-D5W 900 MG/50 ML*** 900 MG/50 ML BAG IV ONE (12:00)
--- NOTE | 2023-08-04 13:00 | OP ---
SURGERY DATE/TIME: 08/03/2023 1543 PREOPERATIVE DIAGNOSIS: Intrauterine at 39 weeks gestation with arrest of descent and dilatation. POSTOPERATIVE DIAGNOSIS: Intrauterine at 39 weeks gestation with arrest of descent and dilatation. PROCEDURE: Primary section, low flap transverse uterine incision, Pfannenstiel skin incision. SURGEON: Dawson Ca D.O. FAMILY PRACTICE DOCTOR: Gladys Keen, surgical technicians. ANESTHESIA: Epidural. QUANTITATIVE BLOOD LOSS: 787 cc. COMPLICATIONS: None. INDICATIONS: The risks, benefits, indications and alternatives of the procedure were reviewed with the patient prior to procedure. The patient understood the risk of infection, bleeding, bowel injury, bladder injury, ureteral injury, pelvic infection and thromboembolic disorder associated with this surgery and desires to have this surgery as a possible means to alleviate her current medical condition. DESCRIPTION OF PROCEDURE AND FINDINGS: At this point the patient is taken to the operating room where her epidural anesthesia was found to be adequate. She was then prepared and draped in normal sterile fashion in the dorsal supine position with leftward tilt. A Pfannenstiel skin incision is made with a scalpel and carried through to the underlying layer of the fascia with a Bovie. The fascia was then incised in the midline and the incision extended laterally with [place] scissors. The superior aspect of the fascial incision was then grasped Tristen clamps elevated and the underlying rectus muscles dissected off bluntly. Attention is then turned to the inferior aspect of this incision which in similar fashion was grasped, tented up with Tristen clamps and the rectus muscles dissected off bluntly. The rectus muscles were then at the midline and the peritoneum identified, tented up and entered sharply with Metzenbaum scissors. The peritoneal incision was then extended superiorly and inferiorly with good visualization of the bladder. The bladder blade was then inserted and vesicouterine peritoneum identified, grasped with pickups and entered sharply with Metzenbaum scissors. This incision was then extended laterally and bladder flap created digitally. The bladder blade was then reinserted and the lower uterine segment incised in transverse fashion with a scalpel. The uterine incision was then extended laterally with bandage scissors. The bladder blade was then removed and infants head was delivered atraumatically. The nose and mouth were suctioned with bulb suction and the cord clamped and cut. The infant was then handed off to the awaiting nurses. The placenta was then removed manually. The uterus exteriorized and cleared of all clots and debris. The uterine incision was repaired with 1-0 chromic in a running locked fashion. A second layer of the same suture was used to obtain excellent hemostasis. The uterus is then returned to the abdomen. The gutters were cleared of clots. At this point the peritoneal muscles were closed in interrupted fashion using 2-0 chromic suture. The fascia was re-approximated with 0 Vicryl in a running fashion. The subcutaneous layer was closed with 3-0 Vicryl suture and the skin was closed with absorbable charlie called INSORB. The patient tolerated the procedure well. Sponge, lap, needle and instrument counts were correct x2. The patient was then taken to the recovery room in stable condition. The patient delivered a live baby boy at 1605 hours. 's were 8 at 1 minute and 9 at 5 minutes. The weight of the baby was 8 pounds 9 ounces.
[2023-08-04] MEDS: MOTRIN 400 MG PO PRN (18:16)
[2023-08-04] MEDS ORDERED: NORCO 5/325 MG PO PRN (19:24)
[2023-08-04] MEDS: GENTAMICIN 80 MG/50 ML PREMIX*** 80 MG/50 ML ML IV SCH (19:24)
[2023-08-04] MEDS: CLINDAMYCIN-D5W 900 MG/50 ML*** 900 MG/50 ML BAG IV SCH (19:25)
[2023-08-04 22:02] VITALS: RESP 20
[2023-08-05] MEDS: MOTRIN 400 MG PO PRN ×2 (01:33→08:26)
[2023-08-05] MEDS: GENTAMICIN 80 MG/50 ML PREMIX*** 80 MG/50 ML ML IV SCH (03:03)
[2023-08-05] MEDS: CLINDAMYCIN-D5W 900 MG/50 ML*** 900 MG/50 ML BAG IV SCH (03:04)
[2023-08-05 04:38] LABS: Absolute Neutrophil Ct (ANC) 11.25 x10^3/uL (1.4-6.9); BASOPHIL % 0.2 % (0.0-0.4); Basophil (Absolute #) 0.03 x10^3/uL (0-0.4); Eosinophil % 0.3 % (0.00-5.0); Eosinophil (Absolute #) 0.04 x10^3/uL (0-0.5); Hematocrit 29.7 % (35-47); Hemoglobin 9.2 g/dL (12.0-16.0); IMMATURE GRAN % 1.3 % (0.00-0.4); Lymphocytes % 19.1 % (24.0-44.0); Mean Cell Volume 81.8 fL (78-100); Mean Corpuscular Hemoglobin 25.3 pg (26-32); Mean Platelet Volume 11.2 fL (7.5-11.0); Monocyte (Absolute #) 1.21 x10^3/uL (0.0-1.3); Monocytes % 7.7 % (0.0-12.0); Neutrophil % 71.4 % (36.0-66.0); Platelet Count 262 x10^3/uL (150-450); Red Blood Count 3.63 x10^6/uL (4.1-5.4); Red Cell Distribution Width 14.2 % (11.5-14.0); White Blood Count 15.7 x10^3/uL (4.0-10.5)
--- NOTE | 2023-08-05 08:04 | PCM.NOTE ---
Date and Time: 08/05/23802 Subjective Assessment: pod 2 sp csection pt resting in bed ambulating and tolerating diet vss afebrile abd; soft dressing intact uterus; firm lochia; mild hgb; 9.2 a/p sp csection pod 2 dc home today fu office next thursday OBJECTIVE DATA Vital Signs: Vital Signs - 24 hr Temp Pulse Resp BP BP Pulse Ox 08/05/23 02:00 98.0 F 106 H 20 120/64 08/04/23 20:00 97.8 F 107 H 20 105/57 96 08/04/23 14:00 98.1 F 102 H 20 118/72 113/75 97 Pain Assessment - Last Documented Pain Intensity [Lower] 0 Pain Intensity 0 Pain Scale Used 0-10 Pain Scale Intake and Output: Intake & Output 08/02/23 08/03/23 08/04/23 08/05/23 11:59 11:59 11:59 11:59 Intake Total 4100 3000 2150 Output Total 900 3300 Balance 3200 -300 2150 Weight 111.13 kg 111.13 kg Lab Results: Lab Results-Last 24 Hours 08/04/23 08/05/23 Range/Units 04:00 04:26 WBC 15.7 H (4.0-10.5) x10^3/uL RBC 3.63 L (4.1-5.4) x10^6/uL Hgb 9.2 L (12.0-16.0) g/dL Hct 29.7 L (35-47) % MCV 81.8 (78-100) fL MCH 25.3 L (26-32) pg MCHC 31.0 L (32-36) g/dL RDW 14.2 H (11.5-14.0) % Plt Count 262 (150-450) x10^3/uL MPV 11.2 H (7.5-11.0) fL Gran % 71.4 H (36.0-66.0) % Immature Gran % (Auto) 1.3 H (0.00-0.4) % Nucleat RBC Rel Count 0.0 (0.00-0.1) % Eos # (Auto) 0.04 (0-0.5) x10^3/uL Immature Gran # (Auto) 0.20 H (0.00-0.03) x10^3u/L Absolute Lymphs (auto) 3.00 (1.0-4.6) x10^3/uL Absolute Monos (auto) 1.21 (0.0-1.3) x10^3/uL Absolute Nucleated RBC 0.00 (0.00-0.01) x10^3u/L Lymphocytes % 19.1 L (24.0-44.0) % Monocytes % 7.7 (0.0-12.0) % Eosinophils % 0.3 (0.00-5.0) % Basophils % 0.2 (0.0-0.4) % Absolute Granulocytes 11.25 H (1.4-6.9) x10^3/uL Basophils # 0.03 (0-0.4) x10^3/uL Smear Path Review Assessment/Plan (1) Status post delivery Current Visit: Yes Status: Acute Code(s): Z98.891 - HISTORY OF UTERINE SCAR FROM PREVIOUS SURGERY
--- NOTE | 2023-08-05 08:10 | PCM.DS ---
Discharge Summary Date of Admission: 08/03/23 08:00 Admitting Physician: YARITZA GONZALEZ DO Consults: Consults on Case 08/03/23 07:00 Notify Anesthesia Provider PRN 08/03/23 19:25 Notify Anesthesia Provider PRN 08/04/23 10:30 Navigation ONCE Primary Care Provider: MAIKEL BECKFORD DO Allergies Allergies metoprolol Allergy (Verified 07/01/23 10:12) Difficulty Breathing Hospital Summary - Hospital Course Hospital Course: pt admitted on august 02 for huggins induction at 39 wks gestation with hx of gdm and was noted being 5 cm at the time huggins removed on aug 03 and was started on pitocin however was noted to have an arrest disorder and underwent csection and delivered live baby boy without complication. during postop period did well however was noted having elevated wbc and was restarted on antibiotics of gentamicin and clindamycin for 24 hrs and repeat wbc was 15. pt remained afebrile and incision was c/d/intact with dressing intact. all questions answered to her satisfaction and was advised to fu in office in 1 wk for postop evaluation and removal of dressing. pt given percocet for pain management. - Vitals & Intake/Output Vital Signs: Vital Signs Temperature 98.0 F 08/05/23 02:00 Pulse Rate 106 H 08/05/23 02:00 Respiratory Rate 20 08/05/23 02:00 Blood Pressure 120/64 08/05/23 02:00 O2 Sat by Pulse Oximetry 96 08/04/23 20:00 Intake & Output: Intake & Output 08/02/23 08/03/23 08/04/23 08/05/23 11:59 11:59 11:59 11:59 Intake Total 4100 3000 2150 Output Total 900 3300 Balance 3200 -300 2150 Weight 111.13 kg 111.13 kg - Lab Result Diagrams: 08/05/23 04:26 Lab Results-Last 24 Hrs: Lab Results-Last 24 Hours 08/04/23 08/05/23 Range/Units 04:00 04:26 WBC 15.7 H (4.0-10.5) x10^3/uL RBC 3.63 L (4.1-5.4) x10^6/uL Hgb 9.2 L (12.0-16.0) g/dL Hct 29.7 L (35-47) % MCV 81.8 (78-100) fL MCH 25.3 L (26-32) pg MCHC 31.0 L (32-36) g/dL RDW 14.2 H (11.5-14.0) % Plt Count 262 (150-450) x10^3/uL MPV 11.2 H (7.5-11.0) fL Gran % 71.4 H (36.0-66.0) % Immature Gran % (Auto) 1.3 H (0.00-0.4) % Nucleat RBC Rel Count 0.0 (0.00-0.1) % Eos # (Auto) 0.04 (0-0.5) x10^3/uL Immature Gran # (Auto) 0.20 H (0.00-0.03) x10^3u/L Absolute Lymphs (auto) 3.00 (1.0-4.6) x10^3/uL Absolute Monos (auto) 1.21 (0.0-1.3) x10^3/uL Absolute Nucleated RBC 0.00 (0.00-0.01) x10^3u/L Lymphocytes % 19.1 L (24.0-44.0) % Monocytes % 7.7 (0.0-12.0) % Eosinophils % 0.3 (0.00-5.0) % Basophils % 0.2 (0.0-0.4) % Absolute Granulocytes 11.25 H (1.4-6.9) x10^3/uL Basophils # 0.03 (0-0.4) x10^3/uL Smear Path Review Micro Results-Entire Visit: Microbiology 08/02/23 16:53 Urine Culture - Final Urine, Void MIXED ANUSHKA; 3 OR MORE TYPES. NO PREDOMINANT ORGANISM. NO FURTHER WORKUP. PLEASE RESUBMIT IF CLINICALLY INDICATED. - Procedures and Test Procedures and Tests throughout Hospitalization: Therapy Orders & Screens 08/03/23 16:24 Standby ROUTINE Comment: Diagnosis: Induction on Labor Final Diagnosis/Problem List - Final Discharge Diagnosis/Problem (1) Status post delivery Current Visit: Yes Status: Acute Code(s): Z98.891 - HISTORY OF UTERINE SCAR FROM PREVIOUS SURGERY - Discharge Disposition: Home, Self-Care Condition: Stable Prescriptions: New Oxycodone HCl/Acetaminophen [Percocet 5-325 mg Tablet] 1 each PO Q6HPRN PRN #20 tablet MDD 4 PRN Reason: Moderate To Severe Pain Ferrous Sulfate 325 mg [Feosol 325 mg] 325 mg PO BETWEEN UNITS #60 tablet No Action Metformin HCl Xr 500 mg [Glucophage XR 500 MG] 2 tab PO DAILY Aspirin EC 81 mg [Ecotrin 81 mg] 1 tab PO DAILY Pnv No.95/Ferrous Fum/Folic AC [ Caplet] 1 cap PO DAILY Follow up with: MAIKEL BECKFORD DO [Primary Care Provider] - YARITZA GONZALEZ DO [ACTIVE STAFF] - 08/10/23
[2023-08-05] MEDS: Docusate Sodium 100 MG PO SCH (08:28)
[2023-08-05] MEDS: FERREX 150 PO SCH (08:28)
[2023-08-05 10:10] VITALS: BP 121/70; PULSE 109; TEMP 97.7; O2SAT 99
[2023-08-05] MEDS ORDERED: GENTAMICIN 80 MG/50 ML PREMIX*** 80 MG/50 ML ML IV SCH (11:00)
[2023-08-05] MEDS ORDERED: CLINDAMYCIN-D5W 900 MG/50 ML*** 900 MG/50 ML BAG IV SCH (11:00)
== END 2023-08-05 14:13 | disposition home or self-care (01) | DRG 788 ==
LOC: MED SURG 08:00 → UNDOADMOB 16:08 → OB 16:08 → MED SURG 16:08 → OBSVTOIN 08-03 08:00 → INTOOBSV 08-03 08:00
PROVIDERS: ADMIT Obstetrics & Gynecology; ATTEND Obstetrics & Gynecology
PROC: 10D00Z1 Extraction of Products of Conception, Low, Open Approach (ICD-10-PCS; principal; 2023-08-03)
DX: O62.1 Secondary uterine inertia (principal); O24.429 Gestational diabetes mellitus in childbirth, unspecified control; Z3A.39 39 weeks gestation of pregnancy; Z37.0 Single live birth; D72.829 Elevated white blood cell count, unspecified; Z20.828 Contact with and (suspected) exposure to other viral communicable diseases
CPT/HCPCS: 36415; 59025; 59426; 64488; 76816; 76937; 76942; 80307; 81001; 81002; 82947; 85025; 86850; 86900; 86901; 87086; 90471; 90715; 94799; 99213; G0378; G0379; J0690; J1580; J1650; J1885; J2274; J2371; J2405; J2590; J3010; L0625; A9270-GY

== ENCOUNTER 2024-07-31 19:04 | Emergency (ER) | payer MEDICAID ==
[2024-07-31 19:27] VITALS: RESP 18; TEMP 96.2
[2024-07-31] MEDS ORDERED: Zofran 4 MG/2 ML VIAL ONE (19:30)
[2024-07-31] MEDS ORDERED: Sodium Chloride 0.9% 1000 ML 1,000 ML ONE (19:30)
[2024-07-31] MEDS: Sodium Chloride 0.9% 1000 ML 1,000 ML IV STA (19:31)
[2024-07-31] MEDS: Zofran 4 MG/2 ML VIAL IV ONE (19:31)
[2024-07-31 19:35] LABS: HCG URINE TEST NEGATIVE (NEGATIVE)
[2024-07-31 19:38] LABS: Absolute Neutrophil Ct (ANC) 6.98 x10^3/uL (1.56-6.13); BASOPHIL % 0.5 % (0.1-1.2); Basophil (Absolute #) 0.06 x10^3/uL (0.01-0.08); Eosinophil % 2.5 % (0.7-5.8); Eosinophil (Absolute #) 0.29 x10^3/uL (0.04-0.36); Hematocrit 39.4 % (34.1-44.9); IMMATURE GRAN # 0.07 x10^3u/L (0.001-0.031); IMMATURE GRAN % 0.6 % (0.001-0.429); Lymphocyte (Absolute #) 3.49 x10^3/uL (1.18-3.74); Lymphocytes % 29.9 % (19.3-51.7); Mean Cell Volume 80.7 fL (79.4-94.8); Mean Corpuscular Hemoglobin 26.6 pg (25.6-32.2); Mean Platelet Volume 10.5 fL (9.4-12.3); Monocytes % 6.8 % (4.7-12.5); Neutrophil % 59.7 % (34.0-71.1); Platelet Count 332 x10^3/uL (182-369); Red Blood Count 4.88 x10^6/uL (3.93-5.22); Red Cell Distribution Width 13.3 % (11.7-14.4); White Blood Count 11.7 x10^3/uL (3.98-10.04)
[2024-07-31 19:40] LABS: Appearance Clear (Clear); Bacteria None Seen /HPF (None Seen); Bilirubin Negative (Negative); Blood Negative (Negative); Epithelial Cells None Seen /HPF (None Seen); Glucose, Urine Negative (Negative); Hyaline Casts NONE SEEN /LPF (0-2); Ketones Negative (Negative); Leukocyte Esterase Small (Negative); Nitrite Negative (Negative); Ph 5.5 (4.6-8.0); Protein,Urine Dip Negative (Negative); RBC 0-2 /HPF (0-5); Urobilinogen 0.2 mg/dL (0.2); WBC 21-50 /HPF (0-5)
--- NOTE | 2024-07-31 19:45 | ERPHSYRPT ---
- History of Present Illness Time Seen by Provider: 07/31/24 19:06 Patient Subjective Stated Complaint: pt states that she was eating supper and sat down. pt states that she had a sharp stabbing pain to middle back. Triage Nursing Assessment: pt ambulated into the er; pt is axo x4; c/o back pain; pt states 6/10 pain to back; c/o N/V; no bruising or deformity present to back; pt denies trauma or injury; skin PDW; no respiratory distress present; hypertensive Physician History: 29-year-old female with history of kidney stones presented in the ER with complaint of low to mid back pain sudden onset after she had supper moderate to severe sharp with associated nausea and 3 episodes of nonprojectile, nonbilious vomiting with no hematemesis. Patient report pain started to improve on its own and currently having 56/10 intensity, nonradiating. No abdominal pain. Allergies/Adverse Reactions: metoprolol Allergy (Verified 07/31/24 19:17) Difficulty Breathing Home Medications: Secukinumab [Cosentyx Unoready Pen] 2 ml SQ UD 07/31/24 [History] Hx Tetanus, Diphtheria Vaccination/Date Given: No Hx Influenza Vaccination/Date Given: No Hx Pneumococcal Vaccination/Date Given: No Travel Risk - International Travel Have you traveled outside of the country in past 3 weeks: No - Emerging Infectious Disease Are you exhibiting symptoms associated with any current EIDs: No - Review of Systems Constitutional: No Symptoms Ears, Nose, & Throat: No Symptoms, Throat Swelling Cardiac: No Symptoms Abdominal/Gastrointestinal: Nausea, Vomiting Genitourinary Symptoms: No Symptoms Musculoskeletal: Back Pain Skin: No Symptoms Neurological: No Symptoms Psychological: No Symptoms Endocrine: No Symptoms Hematologic/Lymphatic: No Symptoms Immunological/Allergic: No Symptoms - Past Medical History Pertinent Past Medical History: Yes Neurological History: No Pertinent History ENT History: No Pertinent History Cardiac History: Other Respiratory History: No Pertinent History Endocrine Medical History: No Pertinent History Musculoskeletal History: No Pertinent History GI Medical History: No Pertinent History History: No Pertinent History Psycho-Social History: Anxiety Female Reproductive Disorders: No Pertinent History Other Medical History: Elevated Heart rate d/t anxiety - Past Surgical History Past Surgical History: Yes Neuro Surgical History: No Pertinent History Cardiac: No Pertinent History Respiratory: No Pertinent History Gastrointestinal: No Pertinent History Genitourinary: No Pertinent History Musculoskeletal: No Pertinent History Female Surgical History: No Pertinent History Other Surgical History: TONSILS - Female History Hx Last Menstrual Period: 06/25 Hx Now: No - Social History Smoking Status: Never smoker Exposure to second hand smoke: No Drug Use: none Patient Lives Alone: No - Social Determinants of Health Will the patient participate in the screening: Yes Do you worry about a steady place to live?: No Do you have any problems with any of the following?: No known problems In the past 12 months,have you had to go without utilities?: No Transportation Issues: No Has anyone in your support network made you feel unsafe?: No Have you or anyone in your house had to go without enough: No - Nursing Vital Signs Nursing Vital Signs: Initial Vital Signs Pulse Rate 97 H 07/31/24 19:17 Blood Pressure 144/101 07/31/24 19:17 O2 Sat by Pulse Oximetry 97 07/31/24 19:17 Pain Scale Pain Intensity [Back] 6 Pain Intensity 6 - Physical Exam General Appearance: no apparent distress Eye Exam: PERRL/EOMI Ears, Nose, Throat Exam: normal ENT inspection Neck Exam: normal inspection, supple, full range of motion Respiratory Exam: normal breath sounds, lungs clear Cardiovascular Exam: regular rate/rhythm, normal heart sounds Gastrointestinal Exam: soft, normal bowel sounds, No tenderness, No distention, No guarding Back Exam: normal inspection, normal range of motion, No CVA tenderness, No vertebral tenderness Extremity Exam: normal inspection, normal range of motion Neurologic Exam: alert, oriented x 3, cooperative Skin Exam: normal color, warm SpO2 Interpretation: normal SpO2: 98 O2 Delivery: Room Air Ordered Tests: Active Orders 24 hr Category Date Time Status IV Insertion STAT Care 07/31/24 19:24 Active NPO (ED) STAT Care 07/31/24 19:24 Active CBC W DIFF Stat Lab 07/31/24 19:34 Completed CMP Stat Lab 07/31/24 19:34 Completed CULTURE,URINE Stat Lab 07/31/24 19:29 Received HCG QUALITATIVE, URINE Stat Lab 07/31/24 19:30 Completed LIPASE Stat Lab 07/31/24 19:34 Completed UA W/RFX UR CULTURE Stat Lab 07/31/24 19:29 Completed Medication Summary Generic Name Dose Route Start Last Admin Trade Name Freq PRN Reason Stop Dose Admin Ceftriaxone Sodium 2 gm in 100 mls @ 200 mls/hr 07/31/24 20:31 07/31/24 20:35 Rocephin 2 Gm/100 Ml Nacl IV 07/31/24 21:00 200 mls/hr STAT ONE 200 mls/hr Administration Discontinued Medications Generic Name Dose Route Start Last Admin Trade Name Delisa PRN Reason Stop Dose Admin Sodium Chloride 1,000 mls @ 999 mls/hr 07/31/24 19:24 07/31/24 20:32 Sodium Chloride 0.9% 1000 Ml IV 07/31/24 20:24 Infused .Q1H1M STA Infusion Sodium Chloride Confirm 07/31/24 19:30 Sodium Chloride 0.9% 1000 Ml Administered 07/31/24 19:31 Dose 1,000 mls @ ud .ROUTE .STK-MED ONE Ceftriaxone Sodium Confirm 07/31/24 20:33 Rocephin 2 Gm/100 Ml Nacl Administered 07/31/24 20:34 Dose 2 gm in 100 mls @ ud IV .STK-MED ONE Ketorolac Tromethamine 30 mg 07/31/24 20:08 07/31/24 20:10 Ketorolac Tromethamine 30 Mg/Ml Inj IV 07/31/24 20:09 30 mg STAT ONE Administration Ketorolac Tromethamine Confirm 07/31/24 20:09 Ketorolac Tromethamine 30 Mg/Ml Inj Administered 07/31/24 20:10 Dose 30 mg .ROUTE .STK-MED ONE Ondansetron HCl 4 mg 07/31/24 19:24 07/31/24 19:31 Ondansetron Hcl 4 Mg/2 Ml Vial IV 07/31/24 19:25 4 mg STAT ONE Administration Ondansetron HCl Confirm 07/31/24 19:30 Ondansetron Hcl 4 Mg/2 Ml Vial Administered 07/31/24 19:31 Dose 4 mg .ROUTE .STK-MED ONE Lab/Rad Data: Laboratory Result Diagrams 07/31/24 19:34 07/31/24 19:34 Laboratory Results 07/31/24 07/31/24 07/31/24 Range/Units 19:34 19:34 19:30 WBC 11.7 H (3.98-10.04) x10^3/uL RBC 4.88 (3.93-5.22) x10^6/uL Hgb 13.0 (11.2-15.7) g/dL Hct 39.4 (34.1-44.9) % MCV 80.7 (79.4-94.8) fL MCH 26.6 (25.6-32.2) pg MCHC 33.0 (32.2-35.5) g/dL RDW 13.3 (11.7-14.4) % Plt Count 332 (182-369) x10^3/uL MPV 10.5 (9.4-12.3) fL Gran % 59.7 (34.0-71.1) % Immature Gran % (Auto) 0.6 H (0.001-0.429) % Nucleat RBC Rel Count 0.0 (0.00-0.2) % Eos # (Auto) 0.29 (0.04-0.36) x10^3/uL Immature Gran # (Auto) 0.07 H (0.001-0.031) x10^3u/L Absolute Lymphs (auto) 3.49 (1.18-3.74) x10^3/uL Absolute Monos (auto) 0.80 (0.24-0.86) x10^3/uL Absolute Nucleated RBC 0.00 (0.00-0.012) x10^3u/L Lymphocytes % 29.9 (19.3-51.7) % Monocytes % 6.8 (4.7-12.5) % Eosinophils % 2.5 (0.7-5.8) % Basophils % 0.5 (0.1-1.2) % Absolute Granulocytes 6.98 H (1.56-6.13) x10^3/uL Basophils # 0.06 (0.01-0.08) x10^3/uL Sodium 140 (135-145) mmol/L Potassium 3.8 (3.5-5.1) mmol/L Chloride 104 (98-107) mmol/L Carbon Dioxide 25 (22-30) mmol/L Anion Gap 15.5 H (5-15) MEQ/L BUN 11 (7-17) mg/dL Creatinine 0.78 (0.52-1.04) mg/dL Estimated GFR 106.7 ML/MIN Glucose 111 H (74-106) mg/dL Calcium 9.2 (8.4-10.2) mg/dL Total Bilirubin 0.40 (0.2-1.3) mg/dL AST 35 (14-36) U/L ALT 35 (0-35) U/L Alkaline Phosphatase 96 (38-126) U/L Serum Total Protein 8.2 (6.3-8.2) g/dL Albumin 4.5 (3.5-5.0) g/dL Lipase 228 (23-300) U/L Urine Color (Yellow) Urine Appearance (Clear) Urine pH (4.6-8.0) Ur Specific [place] (1.005-1.030) Urine Protein (Negative) Urine Glucose (UA) (Negative) mg/dL Urine Ketones (Negative) Urine Blood (Negative) Urine Nitrite (Negative) Urine Bilirubin (Negative) Urine Urobilinogen (0.2) mg/dL Ur Leukocyte Esterase (Negative) U Hyaline Cast (Auto) (0-2) /LPF Urine Microscopic RBC (0-5) /HPF Urine Microscopic WBC (0-5) /HPF Ur Epithelial Cells (None Seen) /HPF Urine Bacteria (None Seen) /HPF Urine Culture Reflexed (NO) Urine HCG, Qual NEGATIVE (NEGATIVE) 07/31/24 Range/Units 19:29 WBC (3.98-10.04) x10^3/uL RBC (3.93-5.22) x10^6/uL Hgb (11.2-15.7) g/dL Hct (34.1-44.9) % MCV (79.4-94.8) fL MCH (25.6-32.2) pg MCHC (32.2-35.5) g/dL RDW (11.7-14.4) % Plt Count (182-369) x10^3/uL MPV (9.4-12.3) fL Gran % (34.0-71.1) % Immature Gran % (Auto) (0.001-0.429) % Nucleat RBC Rel Count (0.00-0.2) % Eos # (Auto) (0.04-0.36) x10^3/uL Immature Gran # (Auto) (0.001-0.031) x10^3u/L Absolute Lymphs (auto) (1.18-3.74) x10^3/uL Absolute Monos (auto) (0.24-0.86) x10^3/uL Absolute Nucleated RBC (0.00-0.012) x10^3u/L Lymphocytes % (19.3-51.7) % Monocytes % (4.7-12.5) % Eosinophils % (0.7-5.8) % Basophils % (0.1-1.2) % Absolute Granulocytes (1.56-6.13) x10^3/uL Basophils # (0.01-0.08) x10^3/uL Sodium (135-145) mmol/L Potassium (3.5-5.1) mmol/L Chloride (98-107) mmol/L Carbon Dioxide (22-30) mmol/L Anion Gap (5-15) MEQ/L BUN (7-17) mg/dL Creatinine (0.52-1.04) mg/dL Estimated GFR ML/MIN Glucose (74-106) mg/dL Calcium (8.4-10.2) mg/dL Total Bilirubin (0.2-1.3) mg/dL AST (14-36) U/L ALT (0-35) U/L Alkaline Phosphatase (38-126) U/L Serum Total Protein (6.3-8.2) g/dL Albumin (3.5-5.0) g/dL Lipase (23-300) U/L Urine Color Yellow (Yellow) Urine Appearance Clear (Clear) Urine pH 5.5 (4.6-8.0) Ur Specific [place] 1.020 (1.005-1.030) Urine Protein Negative (Negative) Urine Glucose (UA) Negative (Negative) mg/dL Urine Ketones Negative (Negative) Urine Blood Negative (Negative) Urine Nitrite Negative (Negative) Urine Bilirubin Negative (Negative) Urine Urobilinogen 0.2 (0.2) mg/dL Ur Leukocyte Esterase Small A (Negative) U Hyaline Cast (Auto) NONE SEEN (0-2) /LPF Urine Microscopic RBC 0-2 (0-5) /HPF Urine Microscopic WBC 21-50 A (0-5) /HPF Ur Epithelial Cells None Seen (None Seen) /HPF Urine Bacteria None Seen (None Seen) /HPF Urine Culture Reflexed YES (NO) Urine HCG, Qual (NEGATIVE) - Progress Progress: improved Progress Note: 07/31/24 20:46 29-year-old is evaluated in the ER for sudden onset mid to lower back pain with associated 3 episodes of nonprojectile, nonbilious vomiting after she had her dinner. Pain started to improve on presentation in the ER. Patient currently has no abdominal tenderness. Had no abdominal pain before. Had minimal tenderness in the upper lumbar spine area. She is given fluids and symptomatic treatment for pain, on reevaluation pain is resolved. No abdominal tenderness on repeated evaluations as well. Patient workup showed white count of 11, chemistries fairly unremarkable, does have UTI with no blood in the urine. Is less likely that patient has a kidney stone. Does not have any flank tenderness. I do not think patient needs CT imaging of her abdomen pelvis/back. Negative neuroexam in lower extremities. She is given Rocephin here will continue with cefpodoxime to go home and outpatient follow-up recommended. Discussed signs symptoms of worsening needing return to ER which she seems understanding stable for discharge. Counseled pt/family regarding: lab results, diagnosis, need for follow-up Medical Desision Making - Diagnostic Testing Diagnostic test were ordered, analyzed, and reviewed by me: Yes - Risk of complications The pt has a mod risk of morbidity or mortality based on: Need for prescription drug management - Departure Departure Disposition: Home Clinical Impression: Acute UTI, Back pain Condition: Stable Critical Care Time: No Referrals: RADHA COURTNEY NP [Primary Care Provider] - Follow up with PCP 1 day Instructions: Urinary Tract Infection, Adult ED, Low Back Pain (DC) Additional Instructions: Take Tylenol/ibuprofen as needed. Drink plenty of fluids to keep yourself well- hydrated. Follow-up with primary care for reevaluation. Return to ER for intractable back pain, numbness tingling weakness of lower extremities, loss of bowel or bladder control/saddle anesthesia etc. Prescriptions: Ibuprofen 600 mg PO Q6HPRN PRN 10 Days #20 tablet PRN Reason: Pain Cefpodoxime Proxetil 200 mg [Vantin 200 mg] 200 mg PO BID 7 Days #14 tablet
[2024-07-31 19:50] LABS: ALBUMIN 4.5 g/dL (3.5-5.0); ANION GAP 15.5 MEQ/L (5-15); BILIRUBIN,TOTAL 0.4 mg/dL (0.2-1.3); Calcium 9.2 mg/dL (8.4-10.2); Creatinine 1 0.78 mg/dL (0.52-1.04); EST GLOMERULAR FILTRATION RATE 106.7 ML/MIN; Potassium 3.8 mmol/L (3.5-5.1); Total Protein 8.2 g/dL (6.3-8.2)
[2024-07-31] MEDS ORDERED: TORAdol 30 mg Injection ONE (20:09)
[2024-07-31] MEDS: TORAdol 30 mg Injection IV ONE (20:10)
[2024-07-31] MEDS ORDERED: ROCEPHIN 2 GM/100 ML NACL 2 GM/100 ML IVPB IV ONE (20:33)
[2024-07-31] MEDS: ROCEPHIN 2 GM/100 ML NACL 2 GM/100 ML IVPB IV ONE (20:35)
[2024-07-31 20:51] VITALS: O2SAT 98
[2024-07-31 21:03] VITALS: BP 124/76; PULSE 88
== END 2024-07-31 21:10 | disposition home or self-care (01) ==
LOC: ED 19:04
DX: N39.0 Urinary tract infection, site not specified (principal); M54.50 Low back pain, unspecified; R11.2 Nausea with vomiting, unspecified; Z79.899 Other long term (current) drug therapy
CPT/HCPCS: 36000; 36415; 80053; 81001; 81025; 83690; 85025; 87077; 87086; 87186; 96360; 96365; 96374; 96375; 99284; J0696; J1885; J2405

== ENCOUNTER 2024-12-04 20:00 | Emergency (ER) | payer MEDICAID ==
[2024-12-04 20:29] VITALS: O2SAT 100
[2024-12-04 21:20] LABS: INFLUENZA A NEGATIVE (NEGATIVE); INFLUENZA B NEGATIVE (NEGATIVE); RESPIRATORY SYNCTIAL VIRUS NEGATIVE (NEGATIVE); SARS-CoV-2 Xpert Express NEGATIVE (NEGATIVE)
[2024-12-04 23:09] VITALS: RESP 18; TEMP 98.1
--- NOTE | 2024-12-04 23:30 | ERPHSYRPT ---
- History of Present Illness Time Seen by Provider: 12/04/24 23:15 Source: patient Exam Limitations: no limitations Patient Subjective Stated Complaint: cough, headache, back pain Triage Nursing Assessment: Pt was seen in the bereavement room earlier, and resp swabs performed by lab. Pt brought back to bereavement room and given results from the swabs from Dr. Lee. Pt c/o cough, headache and back pain since 10am this morning. Lungs clear, heart tones reg/tachy. Pt had prod cough with scant amt of creamy sputum. Physician History: 29yo f presents via private vehicle for cough and fevers at home x 1d. 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 Pt endorses some mild cough, tmax 101F at home. Pt denies any n/v/d. Pt currently denies any cp, sob. Timing/Duration: today Cough Quality/Degree: mild Possible Cause: no prior episodes Associated Symptoms: fever, chills, cough, nasal congestion, No chest pain/soreness, No shortness of breath, No sore throat, No wheezing Allergies/Adverse Reactions: metoprolol Allergy (Verified 12/04/24 23:16) Difficulty Breathing Home Medications: Secukinumab [Cosentyx Unoready Pen] 2 ml SQ UD 07/31/24 [History] Semaglutide [Ozempic] 1 mg SQ WEEKLY 12/04/24 [History] Hx Tetanus, Diphtheria Vaccination/Date Given: (unknown) Hx Influenza Vaccination/Date Given: No Hx Pneumococcal Vaccination/Date Given: No Travel Risk - International Travel Have you traveled outside of the country in past 3 weeks: No - Emerging Infectious Disease Are you exhibiting symptoms associated with any current EIDs: Yes Symptoms: Cough: New Onset, Headaches/Body Aches/ - Review of Systems Constitutional: Fever, Fatigue Ears, Nose, & Throat: Sinus Drainage Respiratory: Cough, No Dyspnea Cardiac: No Chest Pain Abdominal/Gastrointestinal: No Symptoms - Past Medical History Pertinent Past Medical History: Yes Neurological History: No Pertinent History ENT History: No Pertinent History Cardiac History: Other Respiratory History: No Pertinent History Endocrine Medical History: No Pertinent History Musculoskeletal History: No Pertinent History GI Medical History: No Pertinent History History: No Pertinent History Psycho-Social History: Anxiety, Other Female Reproductive Disorders: No Pertinent History Other Medical History: Elevated Heart rate d/t anxiety, scoriasis, insulin resistance, pcos - Past Surgical History Past Surgical History: Yes Neuro Surgical History: No Pertinent History Cardiac: No Pertinent History Respiratory: No Pertinent History Gastrointestinal: No Pertinent History Genitourinary: No Pertinent History Musculoskeletal: No Pertinent History Female Surgical History: Section Other Surgical History: TONSILS - Female History Hx Last Menstrual Period: 11/19/24 Hx Now: No - Social History Smoking Status: Never smoker Exposure to second hand smoke: No Drug Use: none Patient Lives Alone: No - Social Determinants of Health Will the patient participate in the screening: Yes Do you worry about a steady place to live?: No Do you have any problems with any of the following?: No known problems In the past 12 months,have you had to go without utilities?: No Transportation Issues: No Has anyone in your support network made you feel unsafe?: No Have you or anyone in your house had to go without enough: No - Nursing Vital Signs Nursing Vital Signs: Initial Vital Signs Temperature 98.9 F 12/04/24 20:01 Pulse Rate 137 H 12/04/24 20:01 Respiratory Rate 17 12/04/24 20:01 O2 Sat by Pulse Oximetry 100 12/04/24 20:01 Pain Scale Pain Intensity 2 - Physical Exam General Appearance: no apparent distress, alert Ears, Nose, Throat Exam: normal ENT inspection Respiratory Exam: normal breath sounds, lungs clear, airway intact, No chest tenderness, No respiratory distress, No rhonchi, No wheezing, No stridor Cardiovascular Exam: regular rate/rhythm, normal heart sounds, normal peripheral pulses SpO2 Interpretation: normal SpO2: 100 O2 Delivery: Room Air Lab/Rad Data: Laboratory Results 12/04/24 12/04/24 Range/Units 20:33 20:33 Influenza Type A Ag NEGATIVE (NEGATIVE) Influenza Type B Ag NEGATIVE (NEGATIVE) RSV (PCR) NEGATIVE (NEGATIVE) SARS-CoV-2 (PCR) NEGATIVE (NEGATIVE) Group A Strep Antibody NOT DETECTED (NEGATIVE) - Progress Progress: re-examined Air Movement: good Progress Note: 12/04/24 23:28 viral swabs negative vitals stable likely viral upper respiratory infection recommend tylenol/ibuprofen alternating for fevers recommend plenty of oral hydration w/ clear liquids/electrolyte containing fluids recommend off work until fever free for 24 hours return to ED if: develop chest pain, develop shortness of breath, develop fevers that do not resolve w/ tylenol Blood Culture(s) Obtained: No Antibiotics given: No Counseled pt/family regarding: lab results, diagnosis, need for follow-up Medical Desision Making - Diagnostic Testing Diagnostic test were ordered, analyzed, and reviewed by me: No - Risk of complications Minimal Risk: Minimal risk of morbidity - Departure Departure Disposition: Home Clinical Impression: Cough Qualifiers: Cough type: acute Qualified Code(s): R05.1 - Acute cough Condition: Stable Critical Care Time: No Referrals: RADHA COURTNEY NP [Primary Care Provider] - Follow up/PCP as directed Additional Instructions: likely viral upper respiratory infection recommend tylenol/ibuprofen alternating for fevers recommend plenty of oral hydration w/ clear liquids/electrolyte containing fluids recommend off work until fever free for 24 hours return to ED if: develop chest pain, develop shortness of breath, develop fevers that do not resolve w/ tylenol
[2024-12-04 23:40] VITALS: BP 130/79; PULSE 120
== END 2024-12-04 23:38 | disposition home or self-care (01) ==
LOC: ED 20:00
DX: R05.1 Acute cough (principal); R50.9 Fever, unspecified; Z79.85 Long-term (current) use of injectable non-insulin antidiabetic drugs; Z79.899 Other long term (current) drug therapy
CPT/HCPCS: 0241U; 87651; 99283; 99282